=== PATIENT | male | born 1955 | race Caucasian/White ===

== ENCOUNTER 2023-06-29 16:51 | Emergency (ER) | payer MEDICARE, MEDICAID ==
[2023-06-29] MEDS: Sodium Chloride 0.9% 10 ML Syringe FLUSH PRN (18:02)
[2023-06-29] MEDS ORDERED: Sodium Chloride 0.9% 1,000 ML IV STA ×2 (18:06→20:42)
[2023-06-29 18:08] LABS: HEMATOCRIT 42.5 % (42.0-52.0); HEMOGLOBIN 15.4 gm/dl (14.0-18.0); MEAN CORPUSCULAR HEMOGLOBIN 31.6 pg (28.0-32.0); MEAN CORPUSCULAR HGB CONC 36.2 g/dl (32.0-36.0); MEAN CORPUSCULAR VOLUME 87.1 fl (83.0-99.0); MEAN PLATELET VOLUME 9.2 fl (9.4-12.4); PLATELET COUNT,PLT 257 K/mm3 (150-400); RED BLOOD CELL COUNT 4.88 M/mm3 (4.52-5.90); WHITE BLOOD CELL COUNT,WBC 16.91 K/mm3 (3.9-11.3)
[2023-06-29 18:33] LABS: LACTIC ACID 1.5 mmol/L (0.4-2.0)
[2023-06-29 18:34] LABS: INR 1.02; PROTHROMBIN TIME 10.9 SECONDS (9.7-12.0)
[2023-06-29 18:47] LABS: CORONAVIRUS COVID-19 NAA NEGATIVE (NEGATIVE); INFLUENZA A NAA NEGATIVE (NEGATIVE); RESPIRATORY SYNCYTIAL VIR NAA NEGATIVE (NEGATIVE)
[2023-06-29 18:47] LABS: A/G RATIO 0.9 (1-2); ALBUMIN 3.5 g/dl (3.4-5.0); ANION GAP 13.7 (5-15); BAND PERCENT MAN 0 % (0-10); BASOPHILS PERCENT MAN 0 (0.2-1.2); BILIRUBIN TOTAL 0.6 mg/dL (0.2-1.0); BUN/CREATININE RATIO 29.3 (14-18); CALCIUM 9.3 mg/dL (8.5-10.1); CREATININE 1.5 mg/dL (0.7-1.3); EOSINOPHILS PERCENT MAN 0 % (0.8-7.0); EST CRCL DRUG DOSING (CG) 47.31 mL/min; LYMPHOCYTES % ATYPICAL MANUAL 1 %; LYMPHOCYTES PERCENT MAN 8 % (20-40); MONOCYTES PERCENT MAN 8 % (2-10); POTASSIUM,K 3.7 mEq/L (3.5-5.1); PROTEIN TOTAL,TP 7.4 g/dl (6.4-8.2)
[2023-06-29 18:48] LABS: PLATELET COUNT ESTIMATE ADEQUATE
[2023-06-29] MEDS ORDERED: Sodium Chloride 0.9% 10 ML Syringe FLUSH ONE (18:56)
[2023-06-29] MEDS ORDERED: Iopamidol 612 MG/ML 100 ML Bottle IVPUSH ONE (18:56)
[2023-06-29 20:31] LABS: APPEARANCE,URINE CLEAR (Clear); BILIRUBIN,URINE NEGATIVE (Negative); COLOR,URINE YELLOW (Yellow); GLUCOSE,URINE NEGATIVE (Negative); KETONES,URINE NEGATIVE (Negative); LEUKOCYTE ESTERASE,URINE NEGATIVE (Negative); NITRITE,URINE NEGATIVE (Negative); OCCULT BLOOD,URINE NEGATIVE (Negative); PROTEIN,URINE NEGATIVE (Negative); UROBILINOGEN,URINE 0.2 (0.2-1.0)
[2023-06-29] MEDS ORDERED: cefTRIAXone 2 GM in Sodium Chloride 0.9% 100 ML IV ONE (20:43)
[2023-06-29] MEDS ORDERED: VANCOmycin 1.75 GM/350 ML 1.75 GM in Premix Bag 1 BAG IV ONE (21:00)
[2023-06-30 05:24] LABS: BASOPHILS ABSOLUTE AUTO 0.1 K/mm3 (0.0-0.2); BASOPHILS PERCENT AUTO 0.4 % (0.0-1.0); EOSINOPHILS ABSOLUTE AUTO 0.1 K/mm3 (0.0-0.4); EOSINOPHILS PERCENT AUTO 0.9 % (0.0-6.0); HEMATOCRIT 40.7 % (42.0-52.0); HEMOGLOBIN 14.7 gm/dl (14.0-18.0); IMMATURE GRAN ABSOLUTE AUTO 0.16 K/mm3 (0.00-0.05); IMMATURE GRAN PERCENT AUTO 1.3 % (0.0-0.4); LYMPHOCYTES ABSOLUTE AUTO 1.7 K/mm3 (1.0-4.8); LYMPHOCYTES PERCENT AUTO 13.6 % (24.0-44.0); MEAN CORPUSCULAR HEMOGLOBIN 31.9 pg (28.0-32.0); MEAN CORPUSCULAR HGB CONC 36.1 g/dl (32.0-36.0); MEAN CORPUSCULAR VOLUME 88.3 fl (83.0-99.0); MEAN PLATELET VOLUME 9.4 fl (9.4-12.4); MONOCYTES PERCENT AUTO 8.1 % (0.0-8.0); NEUTROPHILS ABSOLUTE AUTO 9.3 K/mm3 (1.8-7.7); NEUTROPHILS PERCENT AUTO 75.7 % (41.0-71.0); PLATELET COUNT,PLT 217 K/mm3 (150-400); RED BLOOD CELL COUNT 4.61 M/mm3 (4.52-5.90); WHITE BLOOD CELL COUNT,WBC 12.27 K/mm3 (3.9-11.3)
[2023-06-30 05:40] LABS: A/G RATIO 0.9 (1-2); ANION GAP 15.1 (5-15); BILIRUBIN TOTAL 0.5 mg/dL (0.2-1.0); CALCIUM 8.9 mg/dL (8.5-10.1); CREATININE 1.2 mg/dL (0.7-1.3); EST CRCL DRUG DOSING (CG) 59.14 mL/min; POTASSIUM,K 4.1 mEq/L (3.5-5.1); PROTEIN TOTAL,TP 6.5 g/dl (6.4-8.2)
[2023-06-30] MEDS ORDERED: Sodium Chloride 0.9% 1,000 ML IV ONE (09:29)
[2023-06-30] MEDS ORDERED: VANCOmycin 2 GM/400 ML 2 GM in Premix Bag 1 BAG IV SCH (09:45)
[2023-06-30 10:06] LABS: BASOPHILS ABSOLUTE AUTO 0.1 K/mm3 (0.0-0.2); BASOPHILS PERCENT AUTO 0.5 % (0.0-1.0); EOSINOPHILS ABSOLUTE AUTO 0.1 K/mm3 (0.0-0.4); EOSINOPHILS PERCENT AUTO 1.2 % (0.0-6.0); HEMATOCRIT 39.6 % (42.0-52.0); HEMOGLOBIN 14.3 gm/dl (14.0-18.0); IMMATURE GRAN ABSOLUTE AUTO 0.05 K/mm3 (0.00-0.05); IMMATURE GRAN PERCENT AUTO 0.5 % (0.0-0.4); LYMPHOCYTES ABSOLUTE AUTO 1.5 K/mm3 (1.0-4.8); LYMPHOCYTES PERCENT AUTO 14.1 % (24.0-44.0); MEAN CORPUSCULAR HGB CONC 36.1 g/dl (32.0-36.0); MEAN CORPUSCULAR VOLUME 88.6 fl (83.0-99.0); MEAN PLATELET VOLUME 9.2 fl (9.4-12.4); MONOCYTES ABSOLUTE AUTO 0.9 K/mm3 (0.0-0.8); MONOCYTES PERCENT AUTO 7.9 % (0.0-8.0); NEUTROPHILS ABSOLUTE AUTO 8.3 K/mm3 (1.8-7.7); NEUTROPHILS PERCENT AUTO 75.8 % (41.0-71.0); PLATELET COUNT,PLT 208 K/mm3 (150-400); RED BLOOD CELL COUNT 4.47 M/mm3 (4.52-5.90); WHITE BLOOD CELL COUNT,WBC 10.93 K/mm3 (3.9-11.3)
[2023-06-30 10:37] LABS: A/G RATIO 0.8 (1-2); ALBUMIN 2.9 g/dl (3.4-5.0); ANION GAP 11.9 (5-15); BILIRUBIN TOTAL 0.6 mg/dL (0.2-1.0); CALCIUM 8.9 mg/dL (8.5-10.1); EST CRCL DRUG DOSING (CG) 70.97 mL/min; POTASSIUM,K 3.9 mEq/L (3.5-5.1); PROTEIN TOTAL,TP 6.5 g/dl (6.4-8.2)
[2023-06-30] MEDS ORDERED: VANCOmycin 750 MG/150 ML 750 MG in Premix Bag 1 BAG IV SCH ×2 (11:30→12:45)
[2023-06-30] MEDS: Sodium Chloride 0.9% 10 ML Syringe FLUSH PRN (12:54)
== END 2023-06-30 12:45 ==
LOC: JD.ED 16:51
DX: E87.1 Hypo-osmolality and hyponatremia (principal); N17.9 Acute kidney failure, unspecified; L08.9 Local infection of the skin and subcutaneous tissue, unspecified; I10 Essential (primary) hypertension; Z86.16 Personal history of COVID-19; Z79.899 Other long term (current) drug therapy
CPT/HCPCS: 0241U; 36415; 73701; 80053; 80202; 81003; 83605; 85007; 85025; 85027; 85610; 85652; 86140; 87040; 96361; 96365; 96366; 96367; 99285; J0696; J3370; J3490; J7030; Q9967; 99284

== ENCOUNTER 2024-03-17 07:00 | Day surgery (SDC) | payer MEDICARE, MEDICAID ==
[~2024-03-17 07:00] MED LIST: Midazolam 1 MG/ML 2 ML SDV ONE; Sodium Chloride 0.9% 10 ML Syringe FLUSH PRN; fentaNYL 100 MCG/2 ML SDV ONE
[2024-03-17] MEDS ORDERED: Ropivacaine 0.5% 5 MG/ML 30 ML SDV ONE (07:03)
[2024-03-17] MEDS: Lactated Ringers 1,000 ML IV SCH (07:30)
[2024-03-17] MEDS ORDERED: Propofol 200 MG/20 ML SDV ONE ×4 (07:31→09:17)
[2024-03-17] MEDS ORDERED: ceFAZolin 2 GM Vial ONE (07:32)
[2024-03-17] MEDS ORDERED: HYDROmorphone 0.5 MG/0.5 ML Syringe IVPUSH PRN (07:33)
[2024-03-17] MEDS ORDERED: Ondansetron 4 MG/2 ML SDV IVPUSH PRN (07:33)
[2024-03-17] MEDS ORDERED: fentaNYL 100 MCG/2 ML SDV IVPUSH PRN (07:33)
[2024-03-17] MEDS ORDERED: ePHEDrine 50 MG/ML SDV ONE (08:20)
[2024-03-17] MEDS: Tranexamic Acid 1,000 MG/10 ML Vial ONE (09:00)
[2024-03-17] MEDS ORDERED: Sodium Chloride 0.9% 10 ML Syringe FLUSH SCH (09:00)
[2024-03-17] MEDS ORDERED: Lactated Ringers 1,000 ML IV ONE (09:00)
[2024-03-17] MEDS: Morphine 8 MG, EPINEPHrine 0.3 MG, Cefuroxime 750 MG, Ketorolac 30 MG, Sodium Chloride ... PRN (09:01)
[2024-03-17] MEDS: Vancomycin 1 GM SDV ONE (09:01)
[2024-03-17] MEDS ORDERED: Dexamethasone 4 MG/ML 5 ML MDV ONE (09:16)
[2024-03-17] MEDS ORDERED: Ketorolac 30 MG/ML SDV ONE (09:16)
[2024-03-17] MEDS: Acetaminophen/HYDROcodone 325-5 MG Tab PO PRN (12:03)
== END 2024-03-17 15:15 | disposition home or self-care (01) ==
LOC: JD.SDS 07:00
PROVIDERS: ATTEND Orthopaedic Surgery
DX: M17.12 Unilateral primary osteoarthritis, left knee (principal); I10 Essential (primary) hypertension; K21.9 Gastro-esophageal reflux disease without esophagitis; Z79.899 Other long term (current) drug therapy
CPT/HCPCS: 0055T; 27447; 73560; 97110; 97161; C1713; C1776; J0171; J0690; J0697; J1100; J1885; J2250; J2270; J2704; J2795; J3010; J3370; J7120; 01402; 64447; A9270-GY; J3490